=== PATIENT | male | born 1990 | race African-American/Black ===

== ENCOUNTER 2020-09-18 15:22 | Emergency (ER) | payer MEDICAID, OTHER ==
[~2020-09-18] VITALS: Ht 172.7 cm; Wt 72.6 kg
[~2020-09-18 15:22] MED LIST: IBUPROFEN600 MG ORAL; NORCO 5-325 TA1 EACH ORAL
[2020-09-18] MEDS ORDERED: HYDROcodone/Acetamin 5/325 tab ORAL ONE (16:15)
--- NOTE | 2020-09-18 17:05 | Diagnostic Imaging Report ---
Clinical Indication:Right wrist pain Technique: 3 views of the right wrist Comparison: 03/30/2015 Findings: There is a comminuted acute fracture of the distal radius. This is impacted, intra-articular, less posteriorly angulated. There is an associated ulnar styloid fracture. Impression: Positive for distal radial and ulnar fractures
--- NOTE | 2020-09-18 17:26 | NUR ---
ED Nurse Note:pt. came with right wrist injury pain and swelling, pain meds given and x-rays done
--- NOTE | 2020-09-18 18:48 | NUR ---
ED Nurse Note:splint and arm sling was placed on right arm Pt cleared by health care Provider for discharge. DC instructions/prescription was given and explained to pt and verbalized understanding of teachings. All medical deviecs such as ID band removed. Pt is AAO x4, ambulatory and left with all personal belongings.
--- NOTE | 2020-09-18 18:51 | Emergency Room Report ---
History of Present Illness General Chief Complaint: Upper Extremity Injury Source: Patient Present Illness HPI 30-year-old male presents to the emergency department complaining of 10 out of 10 severity localized pain to the right wrist x2 days. Patient status post fall down the stairs and he states that he broke his fall with his right arm. Patient reports he is right-hand dominant. He denies open wounds or bleeding. He does report swelling and some deformity. He denies hitting his head and denies midline neck or back pain. Reports pain is exacerbated upon palpation or any movement of the right hand. Denies numbness tingling or loss of sensation or gross motor movements of the extremities, incontinence of bowel or bladder. Denies CP, Palpitations, LOC, AMS, dizziness, Changes in Vision, weakness or a sudden severe headache. Allergies: Coded Allergies: IBUPROFEN (Verified Allergy, Unknown, 09/18/20) COVID-19 Screening Contact w/high risk pt: No Experienced COVID-19 symptoms?: No COVID-19 Testing performed [employer] ARCHITECT: No Patient History Past Medical History: see triage record Past Surgical History: none Pertinent Family History: none Reviewed Nursing Documentation: PMH: Agreed; PSxH: Agreed Nursing Documentation-PMH Past Medical History: No Stated History Review of Systems All Other Systems: negative except mentioned in HPI Physical Exam Vital Signs Date Time Temp Pulse Resp B/P (MAP) Pulse Ox O2 Delivery O2 Flow Rate FiO2 09/18/20 16:06 98.4 97 20 99 Room Air Sp02 EP Interpretation: reviewed, normal General Appearance: no apparent distress, alert, GCS 15, non-toxic Head: normocephalic, atraumatic Eyes: bilateral eye normal inspection, bilateral eye PERRL ENT: hearing grossly normal, normal voice Neck: full range of motion, no bony tend Respiratory: lungs clear, normal breath sounds, speaking full sentences Cardiovascular #1: regular rate, rhythm, no edema, normal capillary refill Musculoskeletal: back normal, gait/station normal, tender - Right wrist TTP, visible deformity and soft tissue swelling., other - Decreased range of motion due to pain however fingers have full range of motion and are MVI. Neurologic: alert, motor strength/tone normal, oriented x3, sensory intact, responsive, speech normal Psychiatric: judgement/insight normal Skin: no rash, normal color Medical Decision Making PA Attestation Dr. Wiley is my supervising Physician whom patient management has been discussed with. Diagnostic Impression: Primary Impression: Right radial fracture Qualified Codes: S52.571A - Other intraarticular fracture of lower end of right radius, initial encounter for closed fracture Additional Impression: Fracture of right ulnar styloid Qualified Codes: S52.611A - Displaced fracture of right ulna styloid proce ss, initial encounter for closed fracture ER Course 30-year-old male presents to the emergency department complaining of 10 out of 10 severity localized pain to the right wrist x2 days. Patient status post fall down the stairs and he states that he broke his fall with his right arm. Patient reports he is right-hand dominant. He denies open wounds or bleeding. He does report swelling and some deformity. He denies hitting his head and denies midline neck or back pain. Reports pain is exacerbated upon palpation or any movement of the right hand. Denies numbness tingling or loss of sensation or gross motor movements of the extremities, incontinence of bowel or bladder. Denies CP, Palpitations, LOC, AMS, dizziness, Changes in Vision, weakness or a sudden severe headache. Ddx considered but are not limited to Fracture, dislocation, contusion, Sprain/Strain/Spasm, Vital signs: are WNL, pt. is afebrile H&PE are most consistent with musculoskeletal injury will perform imaging to r/o fractures/dislocations. ORDERS: - X-ray Right wrist 3 views -positive for distal radius fracture as well as ulnar styloid fracture. ED INTERVENTIONS: - Bacliff PO -Pt. placed in finger trap traction device by RN. -Right arm sugar tong splint applied by myself and RN. Pt. remains neurovascularly intact. - Right arm Sling applied by nuclear engineering technician. Pt. remains neurovascularly intact. DISCHARGE: At this time pt. is stable for d/c to home. Will provide printed patient care instructions, and any necessary prescriptions. Care plan and follow up instructions have been discussed with the patient prior to discharge. Other X-Ray Diagnostic Results Other X-Ray Diagnostic Results : X-Ray ordered: Right wrist # of Views/Limited Vs Complete: 3 View Indication: Pain EP Interpretation: Yes PA Xray: Interpretation reviewed, by supervising MD, and agrees with findings. Interpretation: no dislocation, other - positive for distal radius fracture as well as ulnar styloid fracture. Impression: Other - abnormal Electronically Signed by: Jazmin Sims PA-C Last Vital Signs Date Time Temp Pulse Resp B/P (MAP) Pulse Ox O2 Delivery O2 Flow Rate FiO2 09/18/20 18:46 98.4 80 20 99 Room Air Status: improved Disposition: HOME, SELF-CARE Condition: Stable Scripts Ibuprofen* (MOTRIN*) 600 Mg Tablet 600 MG ORAL THREE TIMES A DAY, #20 TAB Prov: Jazmin Sims 09/18/20 Hydrocodone Bit/Acetaminophen 5-325* (NORCO 5-325 TABLET*) 1 Each Tablet 1 TAB ORAL Q6H PRN for FOR PAIN, #15 TAB 0 Refills Prov: Jazmin Sims 09/18/20 Referrals: Orthopedic Urgent Care Patient Instructions: Wrist Fracture, [id number] Additional Instructions: Take medications as directed. Do not drink alcohol, drive, or operate heavy machinery while taking Bacliff as this may cause drowsiness. Follow up with an AUTOMATION AND CONTROLS INSTRUCTOR in 3-5 days, even if your symptoms have resolved. MUST SEE AUTOMATION AND CONTROLS INSTRUCTOR [facility] TO DETERMINE IF SURGERY IS NECESSARY. --Please review list of primary care clinics, if you do not already have a primary care provider who can give you an Orthopedic Referral. Return sooner to ED if new symptoms occur, or current symptoms become worse. - Please note that this Emergency Department Report was dictated using [employer] fixture assembler technology software, occasionally this can lead to erroneous entry secondary to interpretation by the dictation equipment. Jazmni Sims Sep 18, 2020 18:51
[2020-09-18] MEDS ORDERED: IBUPROFEN600 M1 ORAL (18:55)
[2020-09-18] MEDS ORDERED: NORCO 5-325 TA1 EAC1 ORAL (18:55)
== END 2020-09-18 18:50 | disposition home or self-care (01) ==
LOC: EMR 16:15
DX: S52.571A Other intraarticular fracture of lower end of right radius, initial encounter for closed fracture (principal); S52.611A Displaced fracture of right ulna styloid process, initial encounter for closed fracture; W10.9XXA Fall (on) (from) unspecified stairs and steps, initial encounter; Y93.01 Activity, walking, marching and hiking; Y92.9 Unspecified place or not applicable; Z88.6 Allergy status to analgesic agent
CPT/HCPCS: 29125; 73110; Z7502; 99283